=== PATIENT | female | born 1930 | race Caucasian/White ===

== ENCOUNTER 2018-07-23 15:10 | Observation (INO) | payer MEDICARE ==
[2018-07-23 16:16] LABS: Hemoglobin 10.8 g/dL (12.0-16.0); Mean Corpuscular HGB CONC 30.9 g/dL (32.0-36.0); Mean Corpuscular Hemoglobin 24.3 pg (27.0-31.0); Mean Corpuscular Volume 78.7 fL (78.0-98.0); Mean Platelet Volume 7.2 fL (7.4-10.4); Platelet Count 463 thou/uL (130-400); RBC Distribution Width 16.9 % (11.5-14.5); Red Blood Cell (RBC) Count 4.45 mill/uL (4.20-5.40); White Blood Cell (WBC) Count 10.5 thou/uL (4.8-10.8)
[2018-07-23 16:25] LABS: ALT (SGPT) 11 U/L (8-55); AST (SGOT) 16 U/L (5-34); Albumin 3.8 g/dL (3.4-4.8); Alkaline Phosphatase 64 U/L (40-150); Anion Gap 13 mmol/L (10-20); BUN (Urea Nitrogen) 17 mg/dL (9.8-20.1); Bilirubin, Total 0.4 mg/dL (0.2-1.2); Calc. Creatinine Clearance 0 mL/min (70-130); Calcium 9.5 mg/dL (7.8-10.44); Carbon Dioxide 20 mmol/L (23-31); Chloride 107 mmol/L (98-107); Estimated GFR-MDRD 49; Globulin 3.9 g/dL (2.4-3.5); Glucose 126 mg/dL (83-110); Potassium 4.5 mmol/L (3.5-5.1); Protein, Total 7.7 g/dL (6.0-8.3); Sodium 135 mmol/L (136-145)
--- NOTE | 2018-07-23 16:27 | RAD ---
CHEST ONE VIEW: Indication: History of syncope and dizziness. Comparison: 07-09-14 FINDINGS: Chronic lung changes are stable. Heart size is upper limits of normal. Vascular calcification of the aortic arch is stable. No acute osseous abnormality is evident. IMPRESSION: No definite acute abnormality. Chronic findings as above. POS: [facility]
[2018-07-23 16:31] LABS: Troponin I Less than 0.010 ng/mL (< 0.028)
[2018-07-23 16:34] LABS: Acanthocytes SLIGHT = 1-5 cells (100X) (None Seen); Anisocytosis SLIGHT = 6-15 cells (100X) (0-5/hpf); Band 2 % (5-11); Elliptocytes SLIGHT = 2-5 cells (100X) (0-1/hpf); Eosinophils 1 % (0-10); Hypochromia SLIGHT = 6-15 cells (100X) (0-5/hpf); Lymphocytes 25 % (21-51); MDiff Complete? YES; Monocytes 7 % (0-10); Neutrophil 65 % (42-75); Ovalocytes SLIGHT = 2-5 cells (100X) (0-1/hpf); PLT Morphology Comment Appears Increased; Polychromasia SLIGHT = 2-3 cells (100X) (0-2/hpf); Schistocytes SLIGHT = 2-5 cells (100X) (0-1/hpf)
--- NOTE | 2018-07-23 18:21 | CT ---
CT BRAIN WITHOUT CONTRAST: Indication: History of syncopal episode. Comparison: None. FINDINGS: There is generalized cerebral and cerebellar atrophy. There is mild chronic small vessel white matter ischemic change. Septum pellucidum and third ventricle are midline. No definite acute infarct, hemor rhage, or hydrocephalus is present. The skull and extracranial soft tissues are unremarkable. The mas toid air cells are clear. Visualized paranasal sinuses are clear. IMPRESSION: No acute intracranial abnormality. POS: [facility]
[2018-07-23] MEDS ORDERED: Acetaminophen 325 MG TAB PO PRN ×2 (18:59→20:24)
[2018-07-23 19:50] LABS: Troponin I Less than 0.010 ng/mL (< 0.028)
[2018-07-23 20:09] VITALS: BMI 20.6
[2018-07-23] MEDS ORDERED: Ondansetron PF 4 MG/2 ML Vial IVP PRN (20:24)
[2018-07-23] MEDS ORDERED: Ondansetron ODT 4 MG TAB SL PRN (20:24)
[2018-07-23 20:28] LABS: Bilirubin Negative (Negative); Blood, Urine Negative (Negative); Clarity CLEAR (Clear); Glucose, Urine (Dipstick) Negative (Negative); Leukocyte Small (Negative); Nitrite Negative (Negative); Protein, Urine (Dipstick) Negative (Neg-Trace); Urobilinogen 0.2 mg/dL (0.2-1.0); pH, Urine 5.5 (5.0-9.0)
[2018-07-23 20:30] LABS: Bacteria/HPF None Seen HPF (None Seen); Hyaline Casts/LPF 7-10 HYALINE CAST LPF (0-3 Hyaline); Pathc Cast-AUWi Flag 1.45 (0-2.49); Squamous Epithelial 0-3 HPF (0-3)
[2018-07-23 23:11] LABS: Troponin I Less than 0.010 ng/mL (< 0.028)
--- NOTE | 2018-07-24 01:38 | HP ---
CHIEF COMPLAINT: Syncope. HISTORY OF PRESENT ILLNESS: This patient is an 88-year-old female, who has a primary care physician at [facility], who presented via ambulance today. The patient was in her usual state of good he alth and went shopping at [facility] when she had a syncopal episode. The patient was checking out and solitario ng her check and told her granddaughter that she felt like she would faint and subsequently did. The patient was apparently out for about 1 minute when she regained consciousness reported some nausea. She feels fine now. The patient reports that for about a week now she has been having mild symptoms that she describes as feeling disconnected as if she is standing outside of herself. She had that s yolanda sensation today whenever she had the presyncopal sensation. Patient does not report remember eat ing anything today other than a couple of crackers. This episode happened around 3:00 in the afterno on, and she does not recall having eaten anything prior to that. However, the patient is an aggressi ve coffee drinker and drinks at all day long up until the time she goes to bed. She did drink ample amounts of coffee this morning. She denies any shortness of breath or palpitations. REVIEW OF SYSTEMS: Negative through a 10-system review with the exception of occasional mild right k nee pain that is a result of a fall from about 20 years ago. PAST MEDICAL HISTORY: Notable for prior GI bleed, esophageal stricture. PAST SURGICAL HISTORY: Esophageal stricture dilatation. FAMILY HISTORY: Father had CLL. Her mother had cervical cancer. SOCIAL HISTORY: The patient will very occasionally have a glass of wine. She has no drugs, no tobac co. She has been for over 50 years. Her grandson, Vidal, would be her surrogate decision make r should that become necessary, and she is very clear in stating that she wants to be a DNR. ALLERGIES: LATEX AND NATURAL RUBBER. CURRENT MEDICATIONS: None except occasional [id number] Prilosec. PHYSICAL EXAMINATION: VITAL SIGNS: BP is 134/70, pulse 77, respirations 22, temperature is 97.4, O2 sat 100% on room air. GENERAL APPEARANCE: Age-appropriate female. She is awake, alert, oriented, pleasant and cooperative . She is in no distress. HEENT: PERRL. No OP lesions. NECK: Supple and symmetric with no lymphadenopathy, JVD, carotid bruits or palpable thyroid. CARDIOVASCULAR: Her heart is regular rate and rhythm. There are no murmurs, gallops or rubs. LUNGS: Clear to auscultation bilaterally with good chest wall expansion and air exchange. ABDOMEN: Flat, soft, nontender, nondistended, positive bowel sounds, no masses, no organomegaly. SKIN: Warm and dry with no cyanosis, clubbing or edema. LABORATORY DATA AND X-RAY FINDINGS: Labs: White count 10.5, hemoglobin 10.8, platelets 463. Sodium is 135, potassium 4.5, chloride 107, CO2 of 20, BUN 17, creatinine 1.07, glucose 126. AST 16, ALT 1 1, albumin 3.8. Brain CT, no acute intracranial processes. There is some generalized cerebral and c erebellar atrophy. Chest x-ray, upper limit of normal, and the heart size, but otherwise normal. IMPRESSION AND PLAN: 1. Syncopal episode in a patient, who is otherwise generally quite healthy, very possible the patien t may have simply had a hypoglycemic event after having drank a fair amount of coffee and not having eaten anything substantial until 3:00 in the afternoon when this event occurred. The patient will be kept overnight on observation. We will maintain telemetry monitoring, serial troponins. We will ob tain an echocardiogram in the morning for completeness. 2. Mild anemia. The patient's differential includes hypochromia, polychromasia, anisocytosis, ovalo cytes of those sites, spur cells and schistocytes. Her white cell differential is generally normal. Her MCV is 78.7 and RDW of 16.9. Patient does have a history of some gastrointestinal bleeding, it is possible she may be having some chronic blood loss. We will check an anemia panel.
[2018-07-24 06:13] LABS: Anion Gap 11 mmol/L (10-20); BUN (Urea Nitrogen) 16 mg/dL (9.8-20.1); Calc. Creatinine Clearance 36 mL/min (70-130); Carbon Dioxide 23 mmol/L (23-31); Chloride 105 mmol/L (98-107); Estimated GFR-MDRD 52; Glucose 106 mg/dL (83-110); Potassium 3.5 mmol/L (3.5-5.1); Sodium 135 mmol/L (136-145)
[2018-07-24 06:16] LABS: Iron Binding Capacity, Total 321 mcg/dL (265-497)
[2018-07-24 06:17] LABS: Iron 19 ug/dL (50-170)
[2018-07-24 06:41] LABS: Band 2 % (5-11); Elliptocytes SLIGHT = 2-5 cells (100X) (0-1/hpf); Hemoglobin 9.5 g/dL (12.0-16.0); Hypochromia SLIGHT = 6-15 cells (100X) (0-5/hpf); Lymphocytes 26 % (21-51); MDiff Complete? YES; Mean Corpuscular HGB CONC 30.4 g/dL (32.0-36.0); Mean Corpuscular Hemoglobin 23.6 pg (27.0-31.0); Mean Corpuscular Volume 77.8 fL (78.0-98.0); Mean Platelet Volume 7.4 fL (7.4-10.4); Monocytes 7 % (0-10); Neutrophil 65 % (42-75); PLT Morphology Comment Appears Increased; Platelet Count 423 thou/uL (130-400); RBC Distribution Width 16.9 % (11.5-14.5); Red Blood Cell (RBC) Count 4.02 mill/uL (4.20-5.40); White Blood Cell (WBC) Count 10.5 thou/uL (4.8-10.8)
[2018-07-24 06:51] LABS: Folate (Folic Acid) 7.3 ng/mL (7.0-31.4); Thyroid Stimulating Hormone 0.0598 uIU/mL (0.35-4.94)
--- NOTE | 2018-07-24 08:54 | ULT ---
CAROTID DUPLEX ULTRASOUND: INDICATION: History of syncope. FINDINGS: There is mild to moderate atherosclerotic plaque involving the proximal ICAs. Peak systolic velocity in the right CCA was 86 cm/s and the left 88 cm/s. Peak systolic velocity in the right ICA is 68 cm/s and left 67 cm/s. Right ICA/CCA ratio is 0.79 and the left is 0.76. Antegrade flow is seen above the vertebral arteries. IMPRESSION: No hemodynamically significant stenosis demonstrated. POS: [facility]
[2018-07-24] MEDS ORDERED: Cipro 250 MG TAB PO SCH ×2 (11:46→12:00)
[2018-07-24] MEDS: Cipro 250 MG TAB PO SCH (20:10)
[2018-07-25] MEDS: Cipro 250 MG TAB PO SCH (06:10)
[2018-07-25 11:35] VITALS: BP 140/60; TEMP 98.3
--- NOTE | 2018-07-25 14:26 | PDOC.PN ---
- Subjective Encounter Start Date: 07/24/18 Encounter Start Time: 10:20 Feels very well. No complaints. Family is concerned about her decreasing functional capacity and requests rehab. - Objective Resuscitation Status: Resuscitation Status DNR:Do Not Resuscitate Vital Signs & Weight: Vital Signs (12 hours) Temp Pulse Resp BP BP BP BP 07/25/18 11:07 98.3 F 77 18 140/60 07/25/18 07:15 98.5 F 77 18 112/55 L 118/58 L 115/55 L 07/25/18 03:57 98.9 F 90 18 131/60 Pulse Ox 07/25/18 11:07 97 07/25/18 07:15 97 07/25/18 03:57 99 Weight Weight 124 lb 2 oz I&O: 07/24/18 07/25/18 07/26/18 06:59 06:59 06:59 Intake Total 325 1510 Balance 325 1510 Result Diagrams: 07/24/18 05:31 07/24/18 05:31 Phys Exam - Physical Examination Constitutional: NAD Respiratory: no wheezing, no rales, no rhonchi, clear to auscultation bilateral Cardiovascular: RRR, no significant murmur Gastrointestinal: soft, non-tender, no distention, positive bowel sounds Musculoskeletal: no edema Dx/Plan (1) Syncope Code(s): R55 - SYNCOPE AND COLLAPSE Status: Acute Qualifiers: Encounter type: initial encounter Comment: Suspect hypoglycemic event. Carotids ok. (2) Iron deficiency anemia Code(s): D50.9 - IRON DEFICIENCY ANEMIA, UNSPECIFIED Status: Acute Comment: Hx of GIB. Will start iron, but recommended she follow up with GI soon. (3) UTI (urinary tract infection) Status: Acute Comment: PO cipro (4) Abnormal TSH Code(s): R79.89 - OTHER SPECIFIED ABNORMAL FINDINGS OF BLOOD CHEMISTRY Status : Acute Comment: Needs to rechecked as outpatient in 3-4 weeks. - Plan * Consult CM for Rehab placement.
--- NOTE | 2018-07-25 17:05 | EKG ---
Test Reason : SYNCOPE Blood Pressure : / mmHG Vent. Rate : 073 BPM Atrial Rate : 073 BPM P-R Int : 178 ms QRS Dur : 070 ms QT Int : 390 ms P-R-T Axes : 076 033 054 degrees QTc Int : 429 ms Normal sinus rhythm Normal ECG Confirmed by ROSIE DIAZ ([id number]), newspaper photo editor JUVENAL LR ([id number]) on 07/25/2018 5:04:29 PM Referred By: Confirmed By:ROSIE DIAZ
[2018-07-26] MEDS ORDERED: Ferrous Sulfate 325 MG TAB PO SCH (08:00)
--- NOTE | 2018-07-27 21:43 | DIS ---
DATE OF ADMISSION: 07/23/2018 DATE OF DISCHARGE: 07/25/2018 DISCHARGE DIAGNOSES: 1. Syncopal episode, likely secondary to hypoglycemia. 2. Iron deficiency anemia. 3. Urinary tract infection. 4. Abnormal TSH. HOSPITAL COURSE: This patient is an 88-year-old female, who had a syncopal episode while grocery tavia pping. The patient reported that, as usual, she drank a lot of coffee throughout the morning, but araujo d not really eaten anything and this event occurred about 3:00 in the afternoon. She was seen in the emergency department initially where a CT of the head only showed some age-related degenerative color[place] ges and labs were notable for a hemoglobin of 10.8, platelets of 463 with normal MCV. Labs were gene rally unremarkable including a normal troponin and EKG. HOSPITAL COURSE: The patient was admitted to the hospital. Urinalysis did show 11-20 white cells wi th small leukocyte esterase. Labs also indicated TSH of 0.059 with a free T4 of 1.4. Iron studies r evealed a total iron level of 19, total iron binding capacity was at 321, B12 normal at 298. Folate normal at 7.3. Patient was on telemetry, had no significant findings. She had a carotid Doppler rev ealing no evidence of occlusive disease. An echocardiogram revealed an EF of 60%-65% with grade 1/3 diastolic dysfunction. The patient was felt to have had a syncopal episode due to hypoglycemia, exac erbated by the use of caffeine. She was also felt to have some iron deficiency anemia that was mild, as well as possibly a urinary tract infection. She was started on oral iron supplementation as well as p.o. Cipro for the UTI. The patient felt well and had no further symptoms. I had a long discuss ion with her family and they were very concerned about her overall declining mobility that had been o ccurring over a number of weeks. She was subsequently evaluated by therapy and a rehab consult was vitaly dean. Patient was subsequently accepted in the inpatient rehab and is discharged there. Bandar carney, please see the progress note dated 07/25/2018. DISPOSITION: Patient will be discharged to rehabilitation. She will have no restrictions on her t or activity. She will be on Cipro 250 b.i.d., ferrous sulfate 325 p.o. daily and omeprazole 40 mg p.o. daily as needed. She will follow up with Dr. Sriniavsa Carlson after discharge and she can return to the emergency department should she have any problems prior to that time. The patient should have her thyroid reevaluated at followup when she is in more of a baseline status of health.
== END 2018-07-25 19:20 ==
LOC: ERS 15:10 → 2SW 19:44
PROVIDERS: ADMIT Internal Medicine; ATTEND Internal Medicine
DX: R55 Syncope and collapse (principal); D50.9 Iron deficiency anemia, unspecified; N39.0 Urinary tract infection, site not specified; R94.6 Abnormal results of thyroid function studies; Z91.040 Latex allergy status
CPT/HCPCS: 70450; 71045; 80048; 80053; 82553; 82607; 82746; 83540; 83550; 84439; 84443; 84484 ×2; 85025 ×2; 85652; 93005; 93306; 93880; 97110; 97116 ×2; 97139 ×3; 99285; G0378 ×2; G8978; G8979; G8987; G8988; G8989; 36415; 81003; 81015